=== PATIENT | female | born 1980 | race Caucasian/White ===

== ENCOUNTER → 2017-06-10 09:59 | Outpatient (CLI) | payer OTHER, SELFPAY ==
[2017-06-10 10:41] LABS: Hematocrit 34.9 % (37-47); Hemoglobin 10.5 g/dl (12.0-15.0); Mean Corp Hgb Conc 30.1 g/gl (32-36); Mean Corpuscular Hgb 25.3 pg (27.0-32.0); Mean Corpuscular Volume 84.1 fL (81-99); Mean Platelet Vol. 10.2 fl (6.2-12.0); Platelet Count 359 K/mm3 (150-450); RBC Distribution Width CV 14.3 % (11.6-14.6); RBC Distribution Width SD 44.3 fl (35.1-43.9); Red Blood Count 4.15 M/mm3 (4.2-5.4); White Blood Count 4.3 K/mm3 (4.4-11.0)
[2017-06-10 10:42] LABS: Scan Indicated on CBC? Y/N NO
[2017-06-10 12:08] LABS: Estradiol 66.2 pg/mL; Free T3 2.7 pg/mL (2.18-3.98); T4 Free Direct 1.03 ng/dL (0.76-1.46); Thyroid Stim Hormone (TSH) 1.75 uIU/mL (0.358-3.74)
[2017-06-11 08:09] LABS: DHEA Sulfate 125.7 ug/dL (84.8-378.0)
[2017-06-12 10:19] LABS: AST(SGOT) 23 U/L (15-37); Alanine Aminotransfer ALT/SGPT 24 U/L (13-56); Alkaline Phosphatase 58 U/L (45-117); Bilirubin, Direct 0.09 mg/dL (0.00-0.30); Globulin 3.8 g/dL (2.2-4.2); Protein, Total 7.8 g/dL (6.4-8.2)
[2017-06-12 10:35] LABS: Hemoglobin A1c 5.4 % (4.2-6.3)
== END ==
PROVIDERS: Family Provider Family Medicine; PCP Family Medicine; Visit Provider Obstetrics & Gynecology
DX: E28.2 Polycystic ovarian syndrome (principal); N92.1 Excessive and frequent menstruation with irregular cycle
CPT/HCPCS: 36415; 80076; 82627; 82670; 83036; 84270; 84403; 84439; 84443; 84481; 85027; 82626

== ENCOUNTER → 2018-04-16 15:38 | Outpatient (CLI) | payer OTHER, SELFPAY ==
[2018-04-20 03:07] LABS: HPV Genotype 16, Aptima Negative (Negative)
[2018-04-20 11:16] LABS: HPV APTIMA, High Risk Positive (Negative); HPV Genotype 18,45 Aptima Negative (Negative)
== END ==
PROVIDERS: Visit Provider Obstetrics & Gynecology
DX: Z12.4 Encounter for screening for malignant neoplasm of cervix (principal)
CPT/HCPCS: 87624; 88175; G0145

== ENCOUNTER → 2018-05-16 13:09 | Outpatient (CLI) | payer OTHER, SELFPAY ==
--- NOTE | 2018-05-15 | CER_PTH ---
PATIENT: ROSA CHEW LOC: [facility] U#:[id number] AGE/SX: 44/F ROOM: RE05/16/[address]: Dr. Angelica Vanessa MD : 1980 BED: DIS: SPEC #: [id number] RECD: 05/16/18 13:25 STATUS: IGGY STANTON #: [id number] ANY: 05/15/18 00:[address]: Angelica Aden DEPT: SURGICAL PATHOLOGY RECD BY: Harley Schulte Tissues: A - Uterine cervix, NOS B - Uterine cervix, NOS C - Endocervical Procedures: Surgery Specimen Level IV HEADER OPERATION: Colposcopy PRE-OP DIAGNOSIS: ASCUS, positive HRHPV, LMP 05/07/18, pap 04/16/18 TISSUE SUBMITTED: A - Cervical biopsy 7 o'clock, B - Cervical biopsy 5 o'clock, C - ECC MICROSCOPIC DIAGNOSIS A. Cervix, 7 o'clock, biopsy: Focal changes suspicious for HPV cytopathic effects. Chronic inflammation. See comment. B. Cervix, 5 o'clock, biopsy: A minute superficial fragment of squamous epithelium, no pathologic diagnosis. C. ECC: Fragments of benign endocervical epithelium, benign endocervical mucosa, blood and mucous, negative for dysplasia. SJ:rg 05/17/18 COMMENT A. Immunohistochemistry ([id number]) for surrogate HPV marker (p16) supports the above diagnosis. MICROSCOPIC DESCRIPTION Slides are reviewed. GROSS DESCRIPTION A - Received in fixative is one container labeled with the patient's name and designated 7 o'clock. The specimen consists of a single fragment of soft tissue measuring 0.2 x 0.1 x 0.1 cm. The specimen is totally submitted in one cassette. B - Received in fixative is one container labeled with the patient's name and designated 5 o'clock. The specimen consists of a single fragment of soft tissue measuring 0.1 x 0.05 x 0.05 cm. The specimen is totally submitted in one cassette. C - Received in fixative is one container labeled with the patient's name and designated ECC. The specimen consists of multiple irregular fragments of light lam soft tissue and mucoid material that in aggregate measure 1 x 0.5 x 0.1 cm. The specimen is totally submitted in one cassette. / CE:letha 05/16/18 TC:5 CPT: 48679 x3
--- NOTE | 2018-05-15 | IMM_PTH ---
PATIENT: ROSA CHEW LOC: [facility] U#:[id number] AGE/SX: 44/F ROOM: RE05/16/[address]: Dr. Angelica Vanessa MD : 1980 BED: DIS: SPEC #: [id number] RECD: 05/17/18 13:39 STATUS: IGGY REClemente #: [id number] ANY: 05/15/18 00:[address]: Angelica Aden DEPT: IMMUNOHISTOCHEMISTRY RECD BY: Elysia Moore Tissues: A - Uterine cervix, NOS Procedures: p16 (initial) KI-67 (add) PHYSICIAN & INSTITUTION [place] [id number] SPECIMEN INFORMATION: Tissue Source: A - Cervix, 7 o'clock, biopsy Clinical Info: ASCUS, positive HR-HPV Specimen Number: [id number] CPT code: 40712, 74054 METHODOLOGY: Deparaffinized sections of prefer/formalin-fixed tissue or PAP/DQ stained slides are incubated with monoclonal/polyclonal antibodies/oligonucleotide probes. Localization is made via biotin free immunoperoxidase method. Appropriate controls are performed and reacted as expected. Results on target cell population are indicated in the following table: RESULTS: ANTIBODY / CLONE RESULT Block A P16 (E6H4) positive, focal and patchy Ki-67 (30-9) positive, low These tests were developed and their performance characteristics determined by [facility]. They may not have been cleared or approved by the U.S. Food and Drug Administration. The FDA has determined that such clearance or approval is not necessary. INTERPRETATION: A. Cervix, 7 o'clock, biopsy: Focal changes suspicious for HPV cytopathic effects. SJ:letha 05/18/18
== END ==
PROVIDERS: Referring Provider Obstetrics & Gynecology; Visit Provider Obstetrics & Gynecology
DX: R87.610 Atypical squamous cells of undetermined significance on cytologic smear of cervix (ASC-US) (principal); R87.810 Cervical high risk human papillomavirus (HPV) DNA test positive
CPT/HCPCS: 88305; 88341; 88342

== ENCOUNTER 2018-06-26 17:15 | Observation (INO) | payer OTHER, SELFPAY ==
[2018-06-20 13:39] LABS: Hematocrit 33.7 % (37-47); Hemoglobin 9.9 g/dl (12.0-15.0); Mean Corp Hgb Conc 29.4 g/gl (32-36); Mean Corpuscular Hgb 22.9 pg (27.0-32.0); Mean Corpuscular Volume 77.8 fL (81-99); Mean Platelet Vol. 9.5 fl (6.2-12.0); Platelet Count 379 K/mm3 (150-450); RBC Distribution Width CV 15.5 % (11.6-14.6); RBC Distribution Width SD 44.2 fl (35.1-43.9); Red Blood Count 4.33 M/mm3 (4.2-5.4); Scan Indicated on CBC? Y/N NO; White Blood Count 6.4 K/mm3 (4.4-11.0)
[2018-06-20 13:49] LABS: International Normalized Ratio 1.1; Partial Thromboplast Time 30.9 Seconds (24.1-36.2); Prothrombin Time (Protime)PT. 13.5 SECONDS (11.7-14.9)
[2018-06-26] VITALS (9 sets, daily range): BP systolic 96–135; BP diastolic 54–77; PULSE 55–86; RESP 14–18; TEMP 36.5–37.7; O2SAT 96–100; BMI 21.2
--- NOTE | 2018-06-26 08:33 | PCM.HP.STD ---
Problem List (1) Menorrhagia with regular cycle Status: Acute (2) Anemia Status: Acute (3) Abnormal Pap smear of cervix Status: Acute History of Present Illness Date of Admission: 06/26/18 Chief Complaint: menorrhagia, anemia, abnormal pap smear, HPV The patient is a 37 year old F mulitparous. Two prior c/s. Second c/s with uterine rupture. Presents with increased severity of menorrhagia. Anemia is noted. Also with abnormal pap smear and identification of high risk HPV on recent colposcopy. Past Medical History Allergies No Known Allergies Allergy (Verified 06/19/18 08:03) Home Medications: Ambulatory Orders Medication Instructions Recorded NK 06/19/18 Surgical History: - - c/s x 2 and uterine rupture repair with second c/s Lives: Spouse/ Significant Other Smoking Status: Never smoker Tobacco Use: Non-smoker Alcohol: Rare Review of Systems Constitutional: Denies: Chills, Fever, Weight Change HEENT: Denies: Difficulty Hearing, Difficulty Swallowing, Nasal bleeding, Nasal Congestion, Sore Throat Cardiovascular: Denies: Chest Pain, Palpitations Respiratory: Denies: Shortness of Breath, Wheezing Gastrointestinal: Denies: Constipation, Diarrhea, Nausea, Vomiting Genitourinary: Denies: Dysuria, Frequency, Hematuria, Incontinence, Urgency Musculoskeletal: Denies: Joint Pain, Muscle pain Skin: Denies: Lesions, Skin Changes Neurological: Denies: Focal weakness, Numbness Psychiatric: Denies: Anxiety, Depression Endocrine: Denies: Heat/ Cold Intolerance Hematologic/ Lymphatic: Denies: Easy Bleeding VTE Information - Inpt Only VTE Present on Admission: No VTE Mechan Device Prophylaxis: SCD's VTE Pharm Prophylaxis ordered?: No Reason prophylaxis not ordered:: Treatment Not Indicated Subjective: Healthy appearing female of stated age. No apparent distress. - Physical Exam General: No apparent distress, Well developed, Well nourished HEENT: PERRLA, Normocephalic Oral: Moist Mucosa Neck: Supple, No Nuchal Rigidity Lungs: Clear to auscultation, Normal air movement Cardiovascular: Regular rate, Regular Rhythm Abdomen: Soft, Non Tender, Non-Distended Extremities: No edema, No Calf Tenderness Skin: No rashes Musculoskeletal: No Muscle Wasting Neurological: Cranial nerves II-XII grossly intact Psych/Mental Status: Normal Affect Assessment/Plan All Active Problems Menorrhagia with regular cycle (Acute) Anemia (Acute) Abnormal Pap smear of cervix (Acute) 1. Menorrhagia and anemia Discussion with patient for delayed surgery and iron therapy for improved blood status. This is refused by patient and desire to proceed with original surgery date. Patient accepts risk of transfusion requirement for excess blood loss. Robotic assisted hysterectomy decided upon for 2 prior LTCS and uterine rupture repair with risk of adhesions. The preop preparation including bowel prep, the intraop procedures and the postop recovery reviewed. The risks of bleeding, infection and other organ damage including bladder, bowel and ureteral injury reviewed, accepted and consented. 2. Prior LTCS x 2 and repair of uterine rupture Adhesive disease is anticipated 3. 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
[2018-06-26 11:49] LABS: Internal QC Validated? YES +Cl - CLEAR BKGD
[2018-06-26 11:53] LABS: Pregnancy, Urine Negative Negative
[2018-06-26 12:12] LABS: Anion Gap 5 (5-15); BUN 10 mg/dL (7-18); Calcium,Total 8.3 mg/dL (8.5-10.1); Chloride 105 mmol/L (98-107); EST Glomerular Filtration Rate 67 mL/min (>60); Est Glom Filt Rate - Afr Amer 81 mL/min (>60); Estimated Creatinine Clearance 73.51 ml/min; Glucose 96 mg/dL (74-106); Potassium 3.3 mmol/L (3.5-5.1); Sodium Level 136 mmol/L (136-145)
--- NOTE | 2018-06-26 13:00 | HYST_PTH ---
PATIENT: ROSA CHEW LOC: [facility] U#:[id number] AGE/SX: 37/F ROOM: AR323 RE06/26/[address]: Dr. Marika Perez MD : 1980 BED: 1 DIS: 06/27/2018 SPEC #: [id number] RECD: 06/27/18 07:17 STATUS: IGGY REQ #: [id number] ANY: 06/26/18 13:[address]: Marika Perez DEPT: SURGICAL PATHOLOGY RECD BY: Chema Atkinson ENTERED: 06/27/18 10:49 SP TYPE: HYSTERECT OTHR DR: Dr. Jared Randall MD Tissues: Uterus, NOS Procedures: Surgery Specimen Level V HEADER OPERATION: Robotic assisted vaginal hysterectomy, bilateral salpingectomy PRE-OP DIAGNOSIS: Menorrhagia and anemia, prior LTCS x2 and repair of uterine rupture, high risk HPV and abnormal Pap smear TISSUE SUBMITTED: Uterus, cervix, bilateral fallopian tubes MICROSCOPIC DIAGNOSIS Uterus, hysterectomy: Cervix - minimal chronic inflammation. No evidence of dysplasia. Endometrium - secretory endometrium. Myometrium - no pathologic change. Right and left fallopian tubes - no pathologic change. AM:letha 06/28/18 COMMENT Case has been reviewed in consultation with Dr. Berkowitz who concurs with the above diagnosis. IDC:SJ MICROSCOPIC DESCRIPTION Slides are reviewed. GROSS DESCRIPTION Received in fixative is one container labeled with the patient's name and designated uterus, cervix, bilateral fallopian tubes. The specimen consists of a hysterectomy specimen consisting of uterus with cervix and attached bilateral fallopian tubes. The uterus with cervix weighs 81 gm and measures 10 x 6 x 4.5 cm. The serosal surface is focally ragged. The ectocervical mucosa is unremarkable. The external os is pin point in contour. The endocervical canal measures 2.5 cm in length and the endocervical mucosa is unremarkable. The triangular endometrial cavity measures 5 cm in length and 3 cm in width. The endometrium is lam, glistening without any mass lesion and measures up to 0.3 cm in thickness. Sections of the uterine wall do not reveal any mass lesion and it measures up to 2 cm in thickness. The right fallopian tube measures 7 cm in length and 0.5 cm in diameter. The fimbrial end is identified. The left fallopian tube measures 5 cm in length and 0.5 cm in diameter. The fimbrial end is identified. Sections of both fallopian tubes do not reveal any mass lesion. Meter Repairer sections are submitted in ten cassettes as follows: 1-4 - cervix like a cone (1 - 12 to 3 o'clock position, 2 - 3 to 6 o'clock position, 3??6?to 9 o'clock position, 4 - 9 to 12 o'clock position), 5 & 6 - anterior uterine wall, 7 & 8 - posterior uterine wall, 9 - right fallopian tube, 10 - left fallopian tube. The ecto- and endocervical mucosa of cervix is submitted in entirety. / SJ:rg 06/27/18 TC:5 CPT: 46732
--- NOTE | 2018-06-26 15:24 | PCM.OPRPT ---
Problem List (1) Menorrhagia with regular cycle Status: Acute (2) Anemia Status: Acute (3) Abnormal Pap smear of cervix Status: Acute Report of Operation Date of Procedure: 06/26/18 Pre-Operative Diagnosis: Menorrhagia, anemia, abnormal Pap smear, high risk HPV Post-Operative Diagnosis: Same plus pelvic adhesive disease Surgery/Procedure Performed:: Robotic assisted vaginal hysterectomy, bilateral salpingectomy, enterolysis Description of Surgical Findings:: Uterus was noted to be sounded to approximately 9 cm in an anterior position. Bilateral adnexa on pelvic exam as well as investigation under anesthesia was noted to be within normal limits. Bilateral fallopian tubes reviewed within normal limits. Large amount of pelvic adhesive disease the left ovary fallopian tube over to the vesicouterine peritoneum power superintendent: Klever Berger Type of Anesthesia:: General Anesthesiologist: Alvin Wilkins Special Medications: Cefotetan 2 g IV preoperatively and Esha placed to the vaginal cuff Specimen's removed: Cervix, uterus, bilateral fallopian tubes Drains: None Estimated Blood Loss (mL): 150 cc Fluids Replaced: Lactated Ringer Description of Procedure: Patient was brought to the operating room and n.p.o. status and had undergone a bowel prep in the home setting. She is also taking Pyridium orally on the home setting as well. Patient was placed on the operating room table and appropriate monitors placed. Patient was underwent a general anesthetic was found be adequate she is placed in dorsolithotomy position via the Tim stirrups she was prepped and draped in normal sterile fashion tilt test was negative repeat timeout had occurred. After draping a weighted speculum was placed to the vaginal vault area a Callejas catheter was placed to the atrial lip of the cervix was grasped and elevated uterus was sounded to approximately 9 cm in the anterior position. The cervical easily able to accommodate a medium-sized V care a 0 Vicryl suture at the 3 and 9:00 positions. All other instruments be said to be care were thus removed from the vagina Callejas catheter remain. Changing gloves and turned to the top of the patient with notation of the fundal area of the uterus was made and measurement of 12 of the 8 mm nondisposable trocar for the camera of the robot. This trocar was placed and hemostasis noted at the site 2 L of CO2 gas was infused into the abdominal cavity. 2 additional robotic arms each being 8 mm nondisposable placed in the left and right lower quadrants under direct visualization and hemostasis was noted. The right upper cosmetic sales assistant port of an 8 mmHg air seal was placed under direct visualization hemostasis noted as was a 5 mm left upper quadrant trocar under direct visualization and hemostasis was noted. Deep Trendelenburg occurred and patient tolerated well. The robot was then docked to the patient's side and all arms attached to the trochars that had previously been placed. The left robotic arm was the vessel sealer in the right robotic arm was the monopolar esha. I then began and moved to the consult the robot to take over control. The position of the anatomy revealed obvious ureteral placement and pathways bilaterally. The round ligament on the patient's left side was grasped cauterized and transected the broad ligament anterior posterior leaves the fallopian tube was transected at the end cauterized and transected with the mesosalpinx and the patient's left side and cauterization and transection of the uterine ovarian ligament thus occurred further skeletonization of the uterine vasculature occurred. Securing the uterine vasculature on the patient's left side occurred. A large amount of scar tissue was noted at the broad ligament to the fallopian tube the ovary and then also to the vesicouterine peritoneum and sharp dissection of this area occurred. Moving to the patient's right side the round ligament was grasped cauterized and transected the broad ligament anterior posterior leaves the fallopian tube was dissected away from the ovary at the medial pelvic area using cauterization and transection. The utero-ovarian ligament was cauterized and transected as well with further development the vesicouterine peritoneum and skeletonization uterine vasculature. The uterine vasculature was then secured on the patient's right side for the development of that vesicouterine peritoneum and scar tissue being met with the prior x2. Continued sharp dissection of the vesicouterine peritoneum occurred and cardinal ligaments as well as uterosacral ligaments were sequentially cauterized and transected as well. Clockwise fashion to me the 12:00 down to the 7 o'clock position complete transection cervix away from the vaginal cuff that occurred in my cosmetic sales assistant remove the cervix uterus fallopian tubes through the vagina. The vaginal tampon was displaced. Irrigation of the entire pelvic floor occurred and hemostasis was noted. My cosmetic sales assistant then changed instruments with the left arm becoming a large grasper in the right arm being made a suture cut. Sequential placement of my assessment 0 Vicryl sutures through the cosmetic sales assistant port allowed me to place a left-sided angle stitch connecting the vaginal cuff to the uterosacral cardinal complex on the patient's left side hemostasis was noted the exact same stitch was based on the patient's right side connecting the right vaginal cuff to the uterosacral cardinal complex and hemostasis was noted. 2 additional 0 Vicryl sutures [id number] stitches were placed at the vaginal cuff for reapproximation and hemostasis was noted irrigation was again heard the ureters were traced from the pelvic brim all the way down to the bladder bilaterally and noted to be peristalsing well away from the area of operation and hemostasis was noted Esha was placed to the pelvic region entirely as to where we had just operated. Sponge the instrument and needle counts were correct at this point in time. All needles which been placed for suturing of vaginal cuff were sequentially accounted for by my cosmetic sales assistant. At this point in time the instruments were removed from the pelvic region the robot was de-docked from the patient's side and trochars were sequentially removed after CO2 to gas released from the abdominal cavity. Each of the incision sites were closed with 4-0 Monocryl subcuticular fashion. Sponge instrument and needle counts once again were correct x2. Patient was awakened in stable condition and taken to recovery room for overnight admission. Grafts/Implants Used: None - Complications None - Admit VTE Documentation VTE Present on Admission: No VTE Mechan Device Prophylaxis: SCD's VTE Pharm Prophylaxis ordered?: No Reason prophylaxis not ordered:: Treatment Not Indicated
--- NOTE | 2018-06-26 15:34 | OP.PCM_ITS ---
Problem List (1) Menorrhagia with regular cycle Status: Acute (2) Anemia Status: Acute (3) Abnormal Pap smear of cervix Status: Acute Report of Operation Date of Procedure: 06/26/18 Pre-Operative Diagnosis: Menorrhagia, anemia, abnormal Pap smear, high risk HPV Post-Operative Diagnosis: Same plus pelvic adhesive disease Surgery/Procedure Performed:: Robotic assisted vaginal hysterectomy, bilateral salpingectomy, enterolysis Description of Surgical Findings:: Uterus was noted to be sounded to approximately 9 cm in an anterior position. Bilateral adnexa on pelvic exam as well as investigation under anesthesia was noted to be within normal limits. Bilateral fallopian tubes reviewed within normal limits. Large amount of pelvic adhesive disease the left ovary fallopian tube over to the vesicouterine peritoneum security management specialist: lKever Berger Type of Anesthesia:: General Anesthesiologist: Alvin Wilkins Special Medications: Cefotetan 2 g IV preoperatively and Esha placed to the vaginal cuff Specimen's removed: Cervix, uterus, bilateral fallopian tubes Drains: None Estimated Blood Loss (mL): 150 cc Fluids Replaced: Lactated Ringer Description of Procedure: Patient was brought to the operating room and n.p.o. status and had undergone a bowel prep in the home setting. She is also taking Pyridium orally on the home setting as well. Patient was placed on the operating room table and appropriate monitors placed. Patient was underwent a general anesthetic was found be adequate she is placed in dorsolithotomy position via the Tim stirrups she was prepped and draped in normal sterile fashion tilt test was negative repeat timeout had occurred. After draping a weighted speculum was placed to the vaginal vault area a Callejas catheter was placed to the atrial lip of the cervix was grasped and elevated uterus was sounded to approximately 9 cm in the anterior position. The cervical easily able to accommodate a medium-sized V care a 0 Vicryl suture at the 3 and 9:00 positions. All other instruments be said to be care were thus removed from the vagina Callejas catheter remain. Changing gloves and turned to the top of the patient with notation of the fundal area of the uterus was made and measurement of 12 of the 8 mm nondisposable trocar for the camera of the robot. This trocar was placed and hemostasis noted at the site 2 L of CO2 gas was infused into the abdominal cavity. 2 additional robotic arms each being 8 mm nondisposable placed in the left and right lower quadrants under direct visualization and hemostasis was noted. The right upper transition assistant port of an 8 mmHg air seal was placed under direct visualization hemostasis noted as was a 5 mm left upper quadrant trocar under direct visualization and hemostasis was noted. Deep Trendelenburg occurred and patient tolerated well. The robot was then docked to the patient's side and all arms attached to the trochars that had previously been placed. The left robotic arm was the vessel sealer in the right robotic arm was the monopolar esha. I then began and moved to the consult the robot to take over control. The position of the anatomy revealed obvious ureteral placement and pathways bilaterally. The round ligament on the patient's left side was grasped cauterized and transected the broad ligament anterior posterior leaves the fallopian tube was transected at the end cauterized and transected with the mesosalpinx and the patient's left side and cauterization and transection of the uterine ovarian ligament thus occurred further skeletonization of the uterine vasculature occurred. Securing the uterine vasculature on the patient's left side occurred. A large amount of scar tissue was noted at the broad ligament to the fallopian tube the ovary and then also to the vesicouterine peritoneum and sharp dissection of this area occurred. Moving to the patient's right side the round ligament was grasped cauterized and transected the broad ligament anterior posterior leaves the fallopian tube was dissected away from the ovary at the medial pelvic area using cauterization and transection. The utero- ovarian ligament was cauterized and transected as well with further development the vesicouterine peritoneum and skeletonization uterine vasculature. The uterine vasculature was then secured on the patient's right side for the development of that vesicouterine peritoneum and scar tissue being met with the prior x2. Continued sharp dissection of the vesicouterine peritoneum occurred and cardinal ligaments as well as uterosacral ligaments were sequentially cauterized and transected as well. Clockwise fashion to me the 12:00 down to the 7 o'clock position complete transection cervix away from the vaginal cuff that occurred in my transition assistant remove the cervix uterus fallopian tubes through the vagina. The vaginal tampon was displaced. Irrigation of the entire pelvic floor occurred and hemostasis was noted. My transition assistant then changed instruments with the left arm becoming a large grasper in the right arm being made a suture cut. Sequential placement of my assessment 0 Vicryl sutures through the transition assistant port allowed me to place a left-sided angle stitch connecting the vaginal cuff to the uterosacral cardinal complex on the patient's left side hemostasis was noted the exact same stitch was based on the patient's right side connecting the right vaginal cuff to the uterosacral cardinal complex and hemostasis was noted. 2 additional 0 Vicryl sutures [id number] stitches were placed at the vaginal cuff for reapproximation and hemostasis was noted irrigation was again heard the ureters were traced from the pelvic brim all the way down to the bladder bilaterally and noted to be peristalsing well away from the area of operation and hemostasis was noted Esha was placed to the pelvic region entirely as to where we had just operated. Sponge the instrument and needle counts were correct at this point in time. All needles which been placed for suturing of vaginal cuff were sequentially accounted for by my transition assistant. At this point in time the instruments were removed from the pelvic region the robot was de-docked from the patient's side and trochars were sequentially removed after CO2 to gas released from the abdominal cavity. Each of the incision sites were closed with 4-0 Monocryl subcuticular fashion. Sponge instrument and needle counts once again were correct x2. Patient was awakened in stable condition and taken to recovery room for overnight admission. Grafts/Implants Used: None - Complications None - Admit VTE Documentation VTE Present on Admission: No VTE Mechan Device Prophylaxis: SCD's VTE Pharm Prophylaxis ordered?: No Reason prophylaxis not ordered:: Treatment Not Indicated
[2018-06-26] MEDS: Ketorolac 30 MG/ML Syringe IV ×2 (18:01→23:09)
[2018-06-26] MEDS: Acetaminophen 500 MG Tablet 1000 MG PO ×2 (18:03→23:09)
[2018-06-26] MEDS: Docusate Sodium 100 MG Capsule PO (21:45)
[2018-06-26] MEDS: 0.9% NaCl Peripheral Flush Adult/Peds IV (23:10)
[2018-06-27 02:04] VITALS: BP 108/56; PULSE 70; RESP 16; TEMP 36.7; O2SAT 96
[2018-06-27 05:39] LABS: Hematocrit 27.3 % (37-47); Hemoglobin 8.1 g/dl (12.0-15.0); Mean Corp Hgb Conc 29.7 g/gl (32-36); Mean Corpuscular Hgb 23.1 pg (27.0-32.0); Mean Platelet Vol. 10.3 fl (6.2-12.0); Platelet Count 338 K/mm3 (150-450); RBC Distribution Width CV 15.6 % (11.6-14.6); RBC Distribution Width SD 42.6 fl (35.1-43.9); White Blood Count 11.3 K/mm3 (4.4-11.0)
[2018-06-27 05:55] LABS: Scan Indicated on CBC? Y/N NO
[2018-06-27] MEDS: Acetaminophen 500 MG Tablet 1000 MG PO ×2 (06:00→11:34)
[2018-06-27] MEDS: Ketorolac 30 MG/ML Syringe IV (06:00)
[2018-06-27] MEDS: 0.9% NaCl Peripheral Flush Adult/Peds IV (06:01)
[2018-06-27 07:30] VITALS: O2SAT 100
[2018-06-27 08:19] VITALS: BP 108/58; PULSE 66; RESP 16; TEMP 37.4; O2SAT 100
[2018-06-27] MEDS: Docusate Sodium 100 MG Capsule PO (08:27)
[2018-06-27 08:30] VITALS: PULSE 64
[2018-06-27] MEDS: Ketorolac 10 MG Tablet PO (11:33)
--- NOTE | 2018-06-27 12:16 | PCM.PN.OB ---
Subjective: + flatus. + oral intake tolerated. + void. - Physical Exam General: No apparent distress, Well developed, Well nourished HEENT: Atraumatic Oral: Moist Mucosa Neck: Supple, No Nuchal Rigidity Lungs: Clear to auscultation, Normal air movement, No wheeze Cardiovascular: Regular rate, Regular Rhythm Abdomen: Bowel Sounds Present, Soft, Non Tender, Non-Distended, - - incisions x 5 clear Extremities: No edema, No Calf Tenderness Skin: No rashes Musculoskeletal: No Muscle Wasting Neurological: Cranial nerves II-XII grossly intact Psych/Mental Status: Normal Affect Vital Signs Temp Pulse Resp BP Pulse Ox 99.3 F H 64 16 108/58 L 100 06/27/18 08:19 06/27/18 08:30 06/27/18 08:19 06/27/18 08:19 06/27/18 08:19 Oxygen Delivery Method Room Air Weight: 131 lb 6.328 oz Body Mass Index (BMI) 21.2 Intake and Output for Last 24 Hours 06/25/18 06/26/18 06/27/18 23:59 23:59 23:59 Intake Total 3707 / 3707 2326 / 2326 Output Total 1125 / 1125 1974 / 1974 Balance 2582 / 2582 351 / 351 Laboratory Tests Past 24 Hrs 06/27/18 05:05 WBC 11.3 H RBC 3.50 L Hgb 8.1 L Hct 27.3 L MCV 78.0 L MCH 23.1 L MCHC 29.7 L RDW 15.6 H RDW Differential 42.6 Plt Count 338 MPV 10.3 Medical Necessity - Tobacco Use Smoking Status: Never smoker Tobacco Use: Non-smoker Assessment/Plan All Active Problems Menorrhagia with regular cycle (Acute) Anemia (Acute) Abnormal Pap smear of cervix (Acute) 1. POD #1 - robotic assisted hysterectomy, bilateral salpingectomy and enterolysis ambulating well tolerating po intake voiding well + flatus home 2. Anemia chronic home iron to restart recheck levels in office
--- NOTE | 2018-06-27 12:19 | PCM.DC.VHY ---
Discharge Diet: - - no beef, pork or fresh vegetables x 2 weeks. Protein shakes and smoothies between meals. Increase water intake to a minimum of 120 ounces daily. Discharge Activity: Return to Normal Activity, May Not Drive - while taking narcotic pain medications., May Shower May shower in (days): 0 - TODAY May resume sexual activity in: 6-8 weeks Weight Bearing Status: Full weight bearing Lifting Restrictions: 5 Additional Activity Instructions:: Ambulate often with periods of rest in between Call your doctor if your incision/area has: Continuous Slow Oozing, Sudden Increased Bleeding, Increased Redness Call your doctor if you observe: Fever of 101 or Higher, Inability to urinate, Inability to have a bowel movement, Using more than one pad per hour, Shortness of breath Remove Dressing in (days):: 0 - TODAY Cleanse incision/area with: Soap & Water Allergies/Adverse Reactions: Allergies No Known Allergies Allergy (Verified 06/26/18 11:52) Medications to take at Discharge NK 06/19/18 Primary Care Physician: Jared Randall MD [Primary Care Provider] - Test Results: Test results from this visit will be discussed in further detail at your follow-up appointment, if applicable. Please Follow Up With: Marika Perez MD When: as previously scheduled
--- NOTE | 2018-06-27 12:22 | DCINST_ITS ---
Discharge Diet: - - no beef, pork or fresh vegetables x 2 weeks. Protein shakes and smoothies between meals. Increase water intake to a minimum of 120 ounces daily. Discharge Activity: Return to Normal Activity, May Not Drive - while taking narcotic pain medications., May Shower May shower in (days): 0 - TODAY May resume sexual activity in: 6-8 weeks Weight Bearing Status: Full weight bearing Lifting Restrictions: 5 Additional Activity Instructions:: Ambulate often with periods of rest in between Call your doctor if your incision/area has: Continuous Slow Oozing, Sudden Increased Bleeding, Increased Redness Call your doctor if you observe: Fever of 101 or Higher, Inability to urinate, Inability to have a bowel movement, Using more than one pad per hour, Shortness of breath Remove Dressing in (days):: 0 - TODAY Cleanse incision/area with: Soap & Water Allergies/Adverse Reactions: Allergies No Known Allergies Allergy (Verified 06/26/18 11:52) Medications to take at Discharge NK 06/19/18 Primary Care Physician: Jared Randall MD [Primary Care Provider] - Test Results: Test results from this visit will be discussed in further detail at your follow- up appointment, if applicable. Please Follow Up With: Marika Perez MD When: as previously scheduled
[2018-06-27 13:35] VITALS: BP 99/56; PULSE 71; RESP 16; TEMP 36.8; O2SAT 98
[2018-06-27 13:52] LABS: Bacteria 0 SEEN /hpf (None Seen); Mucous, Urine 0 SEEN /hpf (<or=2+); Red Blood Cells-Urine 0 SEEN /hpf (0-5); White Blood Cells 0 SEEN /hpf (0-5)
[2018-06-27 13:55] LABS: Color, Urine Yellow (Yellow); Glucose, Dipstick Normal (Normal); Ketone-Dipstick Negative (Negative); Leukocyte Esterase-Dipstick Negative /ul (Negative); Nitrite-Dipstick Negative (Negative); Occult Blood-Urine 250 /ul (Negative); Protein-Dipstick Negative (Negative); Specific Gravity, Urine 1.005 (1.002-1.030); Urine Bilirubin Dipstick Negative (Negative); Urine Clarity Clear (Clear); Urine Urobilinogen Normal (Normal)
[2018-06-27 14:06] LABS: Squamous Epithelial Cells - UA 0-5 SEEN /hpf (5-10)
== END 2018-06-27 13:50 | disposition home or self-care (01) ==
LOC: SDC 06-27 09:43 → MS3 06-27 09:43
PROVIDERS: Anesthesiology; Admitting Provider Obstetrics & Gynecology; Family Provider Family Medicine; PCP Family Medicine; Referring Provider Obstetrics & Gynecology; Visit Provider Obstetrics & Gynecology
PROC: 0UT90ZZ Resection of Uterus, Open Approach (ICD-10-PCS; CPT 58571; principal; 2018-06-26 12:40)
DX: N92.0 Excessive and frequent menstruation with regular cycle (principal); D64.9 Anemia, unspecified; R87.810 Cervical high risk human papillomavirus (HPV) DNA test positive; N73.6 Female pelvic peritoneal adhesions (postinfective)
CPT/HCPCS: 00940; 58571; S2900; 36415; 80048; 81001; 81025; 85027; 85610; 85730; 86850; 86900; 87086; 88307; 96361; 96365; 96375; 96376; 99218; J7120; A4216; G0378; G0379; J2405; Q9968

== ENCOUNTER 2020-11-14 17:53 | Emergency (ER) | payer OTHER, SELFPAY ==
[2020-11-14 17:54] VITALS: BP 141/86; PULSE 77; RESP 18; TEMP 37.1; BMI 23.2
--- NOTE | 2020-11-14 18:24 | EX.ED.UPPERE ---
HPI History of Present Illness Chief Complaint: Bite Informant: patient Occured/Mechanism Comment: Dog bite Onset/Context/Timing Onset: Today Context: Sudden Onset Timing: Continuous Quality of Pain: Dull and Aching Location: Right forearm Associated Symptoms Associated Symptoms: Negative for Parasthesia and Weakness Narrative Narrative: Patient presents with dog bite to her right forearm that occurred today. Patient that she was bitten by her own dog. Patient states that another dog attacked her dog and she grabbed her dog. Per patient states that her dog then bit her on her forearm. Patient is unsure of her last tetanus. Patient denies any paresthesias or weakness. Patient describes her pain as dull and aching. Patient denies any other injuries. PFSH PFSH no medical history Home Medications Ibuprofen [Motrin] 800 mg PO TID PRN PRN #60 tab 06/27/18 [Rx Last Taken Unknown] docusate sodium [Colace] 100 mg PO BID #30 capsule 06/27/18 [Rx Last Taken Unknown] amoxicillin-pot clavulanate 875 mg PO Q12H #20 tablet 11/14/20 [Rx Last Taken Unknown] Allergy/AdvReac Type Severity Reaction Status Date / Time No Known Allergies Allergy Verified 06/26/18 11:52 Surgical History (Updated 11/14/20 @ 18:[address] Garry Cardoso DO) History of section History of hysterectomy Social History Smoking Status: Never smoker ROS ROS ED Constitutional Constitutional ED: Denies chills or fever(s) Eyes Eyes: Denies blurry vision or change in vision ENT ENT ED: Denies rhinorrhea or sore throat Cardiovascular Cardiovascular: Denies chest pain or palpitations Respiratory/Chest Respiratory/Chest: Denies cough or dyspnea Gastrointestinal Gastrointestinal: Denies nausea or vomiting Genitourinary Genitourinary ED: Denies dysuria or hematuria Musculoskeletal Musculoskeletal: Denies back pain or neck pain Integumentary Denies abscess or rash Neurologic Neurologic: Denies headache(s) or weakness Allergic/Immunologic Allergic/Immunologic ED: Denies mouth swelling or urticaria EXAM Physical Exam Const Vital Signs: 11/14/20 17:54 Temperature 98.8 F Temperature Source Temporal Pulse Rate 77 Respiratory Rate 18 Blood Pressure 141/86 H Blood Pressure Mean 104 Positive well nourished and well developed General Appearance ED: well developed Neck full ROM and supple Extremity Extremity Narrative: There are several puncture wounds noted over the ulnar aspect of the right mid forearm. There is no bony crepitance or step-off. There are some mild edema and ecchymosis noted. There is full range of motion of the right forearm, wrist, and elbow. Sensation was intact to light touch in the radial, median, and ulnar areas. Strength is 5/5 in the radial, median, and ulnar areas. Radial pulses are equal bilaterally. Capillary refill was less than 2 seconds in all digits. Neuro oriented x3, CN's II-XII intact bilaterally, moves all extremities, no focal motor deficits and no sensory deficits noted Sensorium / Orientation: alert Psych mental status grossly normal MDM MDM MDM Narrative Medical decision making narrative: The wounds were cleaned and dressed with bacitracin dressing. Patient was given a dose of Augmentin here. Patient was given a prescription for Augmentin. Patient was given a tetanus booster. Patient was instructed to follow-up with her primary care physician in 5 to 7 days. Patient understood and was agreeable with the plan. All questions were answered. Discharge Plan Triage Chief Complaint: Bite ED Provider: Garry Cardoso Dx/Rx/DC Orders Clinical Impression: Dog bite of right forearm Instructions: ED Dog Bite Prescriptions: New amoxicillin-pot clavulanate [amoxicillin-pot clavulanate] 875 MG tablet 875 mg PO Q12H Qty: 20 RF: 0 No Action docusate sodium [DOK] 100 MG capsule 100 mg PO BID Qty: 30 RF: 1 Ibuprofen [Motrin] 800 MG tablet 800 mg PO TID PRN PRN (Reason: Cramp) Qty: 60 RF: 1 Primary Care Provider: Jared Randall Referrals: Jared Randall MD [Primary Care Provider] - 5-7 Days Disposition Disposition: Home, Self Care
[2020-11-14] MEDS: Diphth,Pertuss(Acell),Tet Vac 0.5 ML Vial IM (18:49)
[2020-11-14] MEDS: Amox/Clavulanate 875 MG Tablet PO (18:55)
== END 2020-11-14 19:08 | disposition home or self-care (01) ==
PROVIDERS: Emergency Provider Emergency Medicine; PCP Family Medicine
DX: S50.871A Other superficial bite of right forearm, initial encounter (principal); W54.0XXA Bitten by dog, initial encounter; Y93.9 Activity, unspecified; Y92.9 Unspecified place or not applicable
CPT/HCPCS: 90715; 99283